=== PATIENT | female | born 1975 | race Caucasian/White ===

== ENCOUNTER 2018-11-30 08:25 | Outpatient (CLI) | payer OTHER ==
[2018-11-30] MEDS ORDERED: GADOPENTETATE DIMEGLUMINE 5 ML VIAL IVP ONE ×2 (08:47→10:46)
[2018-11-30] MEDS ORDERED: IOTHALAMATE MEGLUMINE 50 ML VIAL ONE (08:47)
[2018-11-30] MEDS ORDERED: BUFFERED LIDOCAINE 10 ML SYRINGE ONE (08:47)
[2018-11-30] MEDS ORDERED: BUFFERED LIDOCAINE 10 ML SYRINGE IU ONE (10:46)
[2018-11-30] MEDS ORDERED: IOTHALAMATE MEGLUMINE 50 ML VIAL IVP ONE (10:46)
--- NOTE | 2018-11-30 11:58 | MRI Report ---
Reason: PAIN LT KNEE Procedure Date: 11/30/2018 Accession Number: [id number] / [id number] Procedure: MRI - Arthrogram Knee LT CPT Code: FULL RESULT: EXAM: LEFT KNEE MRI ARTHROGRAM WITH CONTRAST EXAM DATE: 11/30/2018 10:29 AM. CLINICAL HISTORY: Pain left knee. COMPARISON: None. TECHNIQUE: Multiplanar, multisequence T1-weighted and fluid-sensitive sequences of the knee after an arthrographic injection of dilute gadolinium, dictated under a separate exam. Other: None. FINDINGS: Bones: Anterior cruciate ligament reconstruction. Moderate prominence of the femoral and tibial tunnels measuring up to 1.0 cm and 1.4 cm AP diameter respectively. Mild bone marrow edema and cystic changes adjacent to the tibial tunnel. Articular Cartilage: Shallow partial-thickness loss and irregularity central aspect medial and lateral compartments. Small region deep partial-thickness loss lateral tibial plateau. Shallow irregularity at the median ridge of the patella. Medial Meniscus: Mild blunting at the free edge body and posterior horn. Ill-defined radial tear with contrast inhibition in the central substance posterior horn. Lateral Meniscus: Degenerative fraying at the free edges without discrete contrast-filled tear. Cruciate Ligaments: Diminutive midportion anterior cruciate ligament graft with some contrast inhibition. Subtle osseous prominence at the anterolateral aspect intercondylar notch with subtle mass effect on the graft (sagittal images 14). Mildly thickened posterior cruciate ligament. Collateral Ligaments: The medial collateral and lateral collateral ligamentous structures are intact. Tendons: The quadriceps, patellar, semimembranosus, and popliteus tendons are unremarkable. Musculature: No edema or fatty atrophy. Other: No popliteal cyst. No loose bodies. The medial and lateral retinacula are intact. Mild subcutaneous edema anteriorly. Postsurgical changes and reactive edema in Hoffa's fat pad. IMPRESSION: 1. Prominence of the femoral and tibial tunnels of the anterior cruciate ligament graft with cystic changes in the tunnels. This can be seen in the setting of tunnel syndrome and graft loosening. 2. Diminutive appearance at the midportion anterior cruciate ligament graft, concerning for partial-thickness tearing. 3. Subtle bony prominence at the anterolateral margin intercondylar notch results in subtle mass effect on the anterior cruciate ligament graft. 4. Mild strain posterior cruciate ligament. 5. Postsurgical change versus degenerative fraying medial meniscus. Small radial tear posterior horn. 6. Degenerative fraying lateral meniscus. 7. Mild tricompartmental cartilage loss. RADIA
--- NOTE | 2018-12-01 16:36 | XRAY Report ---
Reason: LT KNEE PAIN Procedure Date: 11/30/2018 Accession Number: [id number] / [id number] Procedure: FL - Arthrogram Needle Placement CPT Code: FULL RESULT: EXAM: Arthrogram Needle Placement DATE: 11/30/2018 9:50 AM CLINICAL HISTORY: LT KNEE PAIN COMPARISON: None. TECHNIQUE: The risks, benefits, and alternatives of the procedure were discussed with the patient. All questions were answered. Written and verbal consent were obtained. The glenohumeral joint was marked under fluoroscopy and prepped and draped in a sterile manner. Local anesthesia was performed with 1% lidocaine. A 22-gauge needle was then inserted into the left knee joint. 20 mL of a solution containing 25% 1% lidocaine, 25% iodinated contrast, and a 1:200 dilution of gadolinium contrast in sterile saline was then injected. The needle was removed without immediate complication. Other: None. Fluoroscopic exposure time: 0.3 minutes. Number of fluoroscopic images: 16. FINDINGS: Bones and joints: No fracture or subluxation. Injection: Fluoroscopic images demonstrate needle placement and contrast in the left knee joint. No contrast extravasation outside of the knee joint. IMPRESSION: Successful fluoroscopically guided arthrographic injection of the left knee. RADIA
== END 2018-11-30 08:26 | disposition home or self-care (01) ==
LOC: DI 08:25
PROVIDERS: ATTEND Nurse Practitioner Family
DX: S83.522A Sprain of posterior cruciate ligament of left knee, initial encounter (principal); S83.242A Other tear of medial meniscus, current injury, left knee, initial encounter; M23.301 Other meniscus derangements, unspecified lateral meniscus, left knee; M23.92 Unspecified internal derangement of left knee
CPT/HCPCS: 27369; 73722; 77002; Q9961

== ENCOUNTER 2021-02-12 10:04 | Outpatient (CLI) | payer OTHER ==
[2021-02-12] MEDS ORDERED: GADOBUTROL 7.5 MMOL/7.5 ML VIAL ONE (10:19)
--- NOTE | 2021-02-12 15:02 | MRI Report ---
PROCEDURE: Brain W/WO INDICATIONS: TRIGEMINAL NEURALGIA CONTRAST: IV CONTRAST: Gadavist ml: 6.3 TECHNIQUE: Noncontrast axial T1 spin echo, axial T2 fast spin echo, sagittal and axial FLAIR, coronal T2 fast sp in echo, axial gradient echo, axial diffusion and ADC through the brain. After the administration of contrast, axial and coronal T1 spin echo with fat saturation through the brain. COMPARISON: None. FINDINGS: Image quality: Excellent. CSF spaces: Basal cisterns are patent. No extra-axial fluid collections. Ventricles are normal in size and shape. Brain: No midline shift. No intracranial bleeds or masses. No abnormal intracranial enhancement. There is cerebral volume loss for age. There is periventricular white matter chronic small vessel is chemic change. The brainstem appears normal. Diffusion-weighted images demonstrate no acute ischemi c insults. No chronic ischemic insults. Normal intravascular flow voids are present. Cerebellopont ine angles are unremarkable. Visualized cranial nerves demonstrate no areas of abnormal signal or enh ancement. Skull and face: Calvarial marrow is normal in signal. Orbits appear normal. Sinuses: Sinuses and mastoids appear clear. IMPRESSION: 1. No acute intracranial process. 2. Visualized cranial nerves demonstrate no areas of abnormal enhancement, signal or mass lesion. Reviewed by: Ashlee Almonte MD on 02/12/2021 3:00 PM PST Approved by: Ashlee Almonte MD on 02/12/2021 3:00 PM PST Station ID: [id number]
[2021-02-12] MEDS ORDERED: GADOBUTROL 7.5 MMOL/7.5 ML VIAL IVP ONE (15:50)
== END 2021-02-12 10:05 | disposition home or self-care (01) ==
LOC: DI 10:04
PROVIDERS: ATTEND Family Medicine
DX: G50.0 Trigeminal neuralgia (principal)
CPT/HCPCS: 70553; A9585

== ENCOUNTER 2021-06-18 14:39 | Outpatient (CLI) | payer OTHER ==
--- NOTE | 2021-06-18 16:31 | MRI Report ---
PROCEDURE: Knee LT W/O INDICATIONS: LEFT KNEE PAIN, BUCKLING TECHNIQUE: Noncontrast sagittal PD fast spin echo and T2 fast spin echo with fat saturation, sagittal 3-D gradie nt sequence with fat saturation; coronal T1 spin echo and PD fast spin echo with fat saturation, and axial PD fast spin echo with fat saturation through the knee. COMPARISON: Left knee arthrogram dated 11/30/2018. FINDINGS: Image quality: Excellent. Menisci: The medial and lateral menisci demonstrate normal morphology and internal signal. The meni scal root ligaments appear intact. Cruciate ligaments: Post surgical changes are noted from prior ACL repair. ACL graft is grossly intac t. No full-thickness ACL graft rupture. PCL is intact. Medial structures: The medial collateral ligament appears intact. The posterior oblique ligament, s emimembranosus tendon insertions, and oblique popliteal ligament, and meniscocapsular junction appear intact. Visualized portions of the pes anserinus tendons appear normal. No abnormal bursal fluid. Lateral structures: The lateral collateral ligament, long and short heads of the biceps femoris tend on appear intact. The popliteus tendon appears normal; the popliteofibular ligament appears intact. The posterosuperior and anteroinferior popliteomeniscal fascicles appear intact. The arcuate and fa bellofibular ligaments appear intact, around the lateral inferior geniculate artery. Iliotibial band appears normal. Anterior structures: The quadriceps and patellar tendons appear intact. Patellar alignment is peggy l. No femoral trochlear dysplasia or ventral trochlear prominence. No edema in the infrapatellar fa t pad. Bones and cartilage: Prominence of femoral and tibial tunnels of the ACL graft with cystic changes wi thin the tonsils are again seen with mild marrow edema adjacent to the tibial tunnel not significantl y changed in appearance compared to prior study. There is also marrow edema involving medial aspect o f lateral femoral condyle weightbearing portion adjacent to the femoral tunnel. No discrete fracture line is identified. [id number] tricompartmental osteoarthritis and chondromalacia most prominen t in lateral femoral tibial compartment is seen. Joint space: There is physiologic knee joint fluid. No Herrera's cyst. Normal appearing synovial pli are incidentally noted. IMPRESSION: 1. Prior ACL repair with postsurgical changes. Prominence of femoral and tibial tunnels surrounding A CL graft with mild edema and cystic changes which was also noted on prior study and may represent gra ft loosening, suggest clinical correlation. No full-thickness ACL graft rupture. PCL is intact. 2. Mild to moderate tricompartmental osteoarthritis and chondromalacia most prominent in the lateral femoral tibial compartment. 3. No definite focal meniscal tear is seen on the current study. Reviewed by: Nick Lyons MD on 06/18/2021 4:23 PM PDT Approved by: Nick Lyons MD on 06/18/2021 4:23 PM PDT Station ID: [id number]
== END 2021-06-18 14:40 | disposition home or self-care (01) ==
LOC: DI 14:39
PROVIDERS: ATTEND Nurse Practitioner Family
DX: M17.12 Unilateral primary osteoarthritis, left knee (principal); M94.262 Chondromalacia, left knee; R93.6 Abnormal findings on diagnostic imaging of limbs; R93.89 Abnormal findings on diagnostic imaging of other specified body structures

== ENCOUNTER 2021-10-04 12:58 | Emergency (ER) | payer OTHER ==
[2021-10-04 13:34] LABS: BASOPHILS # (AUTO) 0.1 10^3/uL (0.0-0.1); BASOPHILS % (AUTO) 1.1 %; EOSINOPHILS # (AUTO) 0.1 10^3/uL (0.0-0.7); EOSINOPHILS % (AUTO) 1.2 %; HCT - HEMATOCRIT 32.1 % (37.0-47.0); HGB - HEMOGLOBIN 9.1 g/dL (12.0-16.0); LYMPHOCYTES # (AUTO) 1.6 10^3/uL (1.5-3.5); MEAN CORPUSCULAR HEMOGLOBIN 19.9 pg (27.0-31.0); MEAN CORPUSCULAR HGB CONC 28.3 g/dL (32.0-36.0); MEAN CORPUSCULAR VOLUME 70.2 fL (81.0-99.0); MONOCYTES # (AUTO) 0.6 10^3/uL (0.0-1.0); NEUTROPHILS # (AUTO) 4.2 10^3/uL (1.5-6.6); NEUTROPHILS % (AUTO) 64.5 %; PLT - PLATELET COUNT 366 10^3/uL (130-450); RED BLOOD COUNT 4.57 10^6/uL (4.20-5.40); RED CELL DISTRIBUTION WIDTH 17.1 % (12.0-15.0); WHITE BLOOD COUNT 6.5 x10^3/uL (4.8-10.8)
[2021-10-04 13:44] LABS: ALBUMIN 4.3 g/dL (3.2-5.5); ALBUMIN/GLOBULIN RATIO 1.4 (1.0-2.2); BILIRUBIN,TOTAL 0.2 mg/dL (0.2-1.0); CALCIUM 9.5 mg/dL (8.5-10.3); CREATININE 0.7 mg/dL (0.4-1.0); POTASSIUM 4.1 mmol/L (3.5-5.0); TOTAL PROTEIN 7.4 g/dL (6.7-8.2)
[2021-10-04 14:41] LABS: BILIRUBIN,URINE NEGATIVE (NEGATIVE); GLUCOSE, URINE (UA) NEGATIVE (NEGATIVE); KETONES,URINE (UA) NEGATIVE (NEGATIVE); LEUKOCYTE ESTERASE, URINE NEGATIVE (NEGATIVE); NITRITE,URINE NEGATIVE (NEGATIVE); OCCULT BLOOD,URINE NEGATIVE (NEGATIVE); PROTEIN,URINE NEGATIVE (NEGATIVE); UROBILINOGEN,URINE 0.2 (NORMAL) E.U./dL (NORMAL)
[2021-10-04 14:43] LABS: CLARITY,URINE CLEAR (CLEAR); HCG UR QUAL NEGATIVE
[2021-10-04] MEDS ORDERED: SODIUM CHLORIDE 0.9% 1,000 ML IV STA ×2 (14:50→14:56)
--- NOTE | 2021-10-04 14:57 | ED Physician Documentation ---
History of Present Illness - Stated complaint Stated Complaint: WEAKNESS/JITTERY - Chief complaint Chief Complaint: General - History obtained from History obtained from: Patient - History of Present Illness Pain level max: 0 Pain level now: 0 - Additonal information Additional information: Patient is a 46-year-old female who presents to the emergency department today feeling weak. This been ongoing for the past several weeks. She states that she has a history of chronic anemia, iron deficiency. She states that she cannot tolerate oral iron and is awaiting iron infusions. She states that her last hemoglobin was 8.8. No abdominal pain. No cough. No congestion. No fevers. No chills. She states she mainly feels tired. She states she has been eating and drinking normally. Review of Systems Constitutional: denies: Fever, Chills Throat: denies: Sore throat Cardiac: denies: Palpitations Respiratory: denies: Dyspnea, Cough, Wheezing GI: denies: Abdominal Pain, Nausea, Vomiting, Diarrhea Skin: denies: Rash Musculoskeletal: denies: Neck pain, Back pain Neurologic: denies: Headache PD PAST MEDICAL HISTORY - Past Medical History Past Medical History: Yes Other Past Medical History: Anemia - Allergies Allergies/Adverse Reactions: Allergies Allergy/AdvReac Type Severity Reaction Status Date / Time No Known Drug Allergies Allergy Verified 10/04/21 13:14 - Living Situation Living Arrangement: reports: At home - Social History Does the pt have substance abuse?: No - Family History Family history: reports: Non contributory PD ED PE NORMAL - Vitals Vital signs reviewed: Yes - General General: Alert and oriented X 3, No acute distress - HEENT HEENT: PERRL, Other (Dry lips and tongue) - Neck Neck: Supple, no meningeal sign - Cardiac Cardiac: RRR, Strong equal pulses - Respiratory Respiratory: No respiratory distress, Clear bilaterally - Abdomen Abdomen: Soft, Non tender, Non distended - Derm Derm: Warm and dry - Extremities Extremities: No edema, No calf tenderness / cord - Neuro Neuro: Alert and oriented X 3, drum drier 2-12 intact, No motor deficit, No sensory deficit, Normal speech Eye Opening: Spontaneous Motor: Obeys Commands Verbal: Oriented GCS Score: 15 - Psych Psych: Normal mood, Normal affect Results - Vitals Vitals: Vital Signs - 24 hr 10/04/21 10/04/21 10/04/21 13:12 14:51 16:05 Temperature 36.5 C Heart Rate 74 61 70 Respiratory 12 14 17 Rate Blood Pressure 133/71 H 125/77 139/86 H O2 Saturation 100 100 100 Oxygen O2 Source Room air - Labs Labs: Laboratory Tests 10/04/21 10/04/21 10/04/21 13:23 13:23 14:31 WBC 6.5 RBC 4.57 Hgb 9.1 L Hct 32.1 L MCV 70.2 L MCH 19.9 L MCHC 28.3 L RDW 17.1 H Plt Count 366 MPV 10.0 Neut # (Auto) 4.2 Lymph # (Auto) 1.6 [place] # (Auto) 0.6 Eos # (Auto) 0.1 Baso # (Auto) 0.1 Absolute Nucleated RBC 0.00 Nucleated RBC % 0.0 Sodium 140 Potassium 4.1 Chloride 108 Carbon Dioxide 26 Anion Gap 6.0 BUN 20 Creatinine 0.7 Estimated GFR (MDRD) 90 Glucose 105 H Calcium 9.5 Total Bilirubin 0.2 AST 20 ALT 13 Alkaline Phosphatase 55 Total Protein 7.4 Albumin 4.3 Globulin 3.1 Albumin/Globulin Ratio 1.4 Urine Color DARK YELLOW Urine Clarity CLEAR Urine pH 6.0 Ur Specific [place] >=1.030 H Urine Protein NEGATIVE Urine Glucose (UA) NEGATIVE Urine Ketones NEGATIVE Urine Occult Blood NEGATIVE Urine Nitrite NEGATIVE Urine Bilirubin NEGATIVE Urine Urobilinogen 0.2 (NORMAL) Ur Leukocyte Esterase NEGATIVE Ur Microscopic Review NOT INDICATED Urine Culture Comments NOT INDICATED Urine HCG, Qual NEGATIVE PD MEDICAL DECISION MAKING - ED course Complexity details: reviewed results, re-evaluated patient, considered differential, d/w patient ED course: 46-year-old female with weakness, her hemoglobin is at her baseline. She does have an elevated BUN to creatinine ratio and concentrated urine. IV fluids were given. Her lightheadedness with standing resolved and she feels much better. Her weakness and jitteriness resolved as well. We will have her follow-up with her doctor for further care and hopefully she is able to obtain her iron infusions. Patient counseled regarding signs and symptoms for which I believe and urgent re-evaluation would be necessary. Patient with good understanding of and agreement to plan and is comfortable going home at this time This document was made in part using voice recognition software. While efforts are made to proofread this document, sound alike and grammatical errors may occur. Departure - Departure Disposition: Home, Self Care Clinical Impression: Dehydration Anemia Qualifiers: Anemia type: unspecified type Qualified Code(s): D64.9 - Anemia, unspecified Condition: Good Instructions: ED Anemia Iron Deficiency, ED Dehydration Follow-Up: ABBY DAY ARNP [Primary Care Provider] - Within 1 week Comments: Drink plenty of fluids at home. Follow-up with your doctor for further care. Hopefully your iron infusions will make you feel better as well. Return if you worsen Discharge Date/Time: 10/04/21 16:18
[2021-10-04 16:06] VITALS: BP 139/86
== END 2021-10-04 16:18 | disposition home or self-care (01) ==
LOC: ED 12:58
DX: E86.0 Dehydration (principal); D64.9 Anemia, unspecified
CPT/HCPCS: 36415; 80053; 81001; 81003; 81025; 85025; 87086; 96360; 99282

== ENCOUNTER 2023-01-15 06:36 | Outpatient (CLI) | payer OTHER | END 2023-01-15 06:37 | disposition EMS.NT | LOC: EMS 06:36 | DX: T43.211A Poisoning by selective serotonin and norepinephrine reuptake inhibitors, accidental (unintentional), initial encounter (principal) ==